=== PATIENT | male | born 1980 | race Caucasian/White ===

== ENCOUNTER 2018-07-18 23:13 | Emergency (ER) | payer SELFPAY ==
[2018-07-18] MEDS ORDERED: LIDOCAINE 1%/EPINEPHRINE INJ 20 ML VIAL INJ ONE (23:25)
[2018-07-18] MEDS ORDERED: DIPH/PERTUSS(ACELL)/TETANUS VAC/PF 0.5 ML SYR (>=10YO) IM ONE (23:31)
[2018-07-18] MEDS ORDERED: CEFAZOLIN 2 GM/D5W RTU 2 GM/50 ML RTUPB IV ONE (23:32)
[2018-07-18] MEDS ORDERED: LIDOCAINE 1%/EPINEPHRINE INJ 20 ML VIAL ONE (23:37)
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
[2018-07-19 00:37] LABS: ABSOLUTE BASOPHILS # (AUTO) 0.1 10^3/uL (0.0-0.2); ABSOLUTE LYMPHOCYTES (AUTO) 1.8 10^3/uL (0.5-4.7); ABSOLUTE MONOCYTES (AUTO) 0.8 10^3/uL (0.1-1.4); ABSOLUTE NEUT (AUTO) 12.3 10^3/uL (1.7-8.2); BASOPHILS % (AUTO) 0.5 % (0-2); EOSINOPHILS % (AUTO) 0.3 % (0-6); HEMATOCRIT 40.3 % (37.9-51.0); HEMOGLOBIN 13.9 g/dL (13.5-17.0); LYMPHOCYTES % (AUTO) 11.8 % (13-45); MEAN CORPUSCULAR HGB CONC 34.4 g/dL (32.0-36.0); MEAN CORPUSCULAR VOLUME 93 fl (80-97); MONOCYTES % (AUTO) 5.2 % (3-13); PLATELET COUNT 277 10^3/uL (150-450); RED BLOOD COUNT 4.33 10^6/uL (4.35-5.55); RED CELL DISTRIBUTION WIDTH 13.4 % (11.5-14.0); SEGMENTED NEUTROPHILS % (AUTO) 82.2 % (42-78); TOTAL CELLS COUNTED % (AUTO) 100 %
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
[2018-07-19 01:27] LABS: ANION GAP 13 (5-19); BLOOD UREA NITROGEN 8 mg/dL (7-20); CALCIUM 9.1 mg/dL (8.4-10.2); CARBON DIOXIDE 23 mmol/L (22-30); CHLORIDE 109 mmol/L (98-107); GLUCOSE 106 mg/dL (75-110); POTASSIUM 4.3 mmol/L (3.6-5.0); SODIUM 145.4 mmol/L (137-145)
[2018-07-19 03:00] VITALS: BP 119/87
== END 2018-07-19 03:00 | disposition home or self-care (01) ==
LOC: ER 23:13
DX: S56.222A Laceration of other flexor muscle, fascia and tendon at forearm level, left arm, initial encounter (principal); S51.812A Laceration without foreign body of left forearm, initial encounter; W26.0XXA Contact with knife, initial encounter; R53.1 Weakness; Z23 Encounter for immunization
CPT/HCPCS: 12002; 99284; 90471; 96365; 36415; 85025; 80048; 73090; 90715; J3490; J0690